=== PATIENT | female | born 1990 | race Caucasian/White ===

== ENCOUNTER 2016-08-12 21:54 | Day surgery (SDC) | payer MEDICAID ==
[~2016-08-12 21:54] MED LIST: BUSPIRONE HCL5 M1 PO; DIFLUCAN100 MG PO; IBUPROFEN800 M1 PO; IBUPROFEN800 MG PO; METRONIDAZOLE500 M2 PO; OXYCODONE/APAP PO; PRENATAL VITAM1 EAC5 PO; PRENATAL1 TAB PO; TYLENOL325 M2 PO
[2016-08-12 23:01] LABS: BASO % 0.6 % (0-2); BASO ABSOLUTE COUNT 0.1 tho/cmm (0.0-0.2); EOSINOPHIL ABSOLUTE COUNT 0.4 tho/cmm (0.0-0.7); HCT-HEMATOCRIT 41.3 % (34.0-49.0); HGB-HEMOGLOBIN 13.3 gm/dl (12.0-15.5); IMMATURE GRANULOCYTES ABSOLUTE 0.03 tho/cmm (0-0.03); IMMATURE GRANULOCYTES PERCENT 0.3 % (0-0.3); LYMPH % 36.9 % (20-45); MCHC MEAN CORPUSCULAR HGB CONC 32.2 % (32.0-36.0); MCV (MEAN CELL VOLUME) 83.9 fl (82.0-96.0); MEAN PLATELET VOLUME 8.4 cmc (9.4-12.4); MONO % 6.5 % (0-12); MONOCYTE ABSOLUTE COUNT 0.7 tho/cmm (0.0-1.2); NEUTROPHIL ABSOLUTE COUNT 5.5 tho/cmm (1.6-8.0); NEUTROPHIL-AUTOMATED 5.5 tho/cmm (1.6-8.0); NEUTROPHILS % 51.7 % (40-80); PLATELET COUNT 371 tho/cmm (150-450); RED BLOOD COUNT 4.92 mil/cmm (4.00-5.20); RED CELL DISTRIBUTION WIDTH 15.5 % (12.4-16.4); WHITE BLOOD COUNT 10.7 tho/cmm (4.0-10.0)
[2016-08-12 23:40] LABS: URINE BILIRUBIN NEGATIVE (NEG); URINE BLOOD LARGE (NEG); URINE GLUCOSE (UA) NEGATIVE (NEG); URINE KETONE NEGATIVE (NEG); URINE LEUKOCYTE ESTERASE NEGATIVE (NEG); URINE NITRITE NEGATIVE (NEG); URINE PROTEIN NEGATIVE (NEG); URINE SPECIFIC GRAVITY 1.015 (1.003-1.030)
[2016-08-12 23:41] LABS: URINE APPEARANCE CLEAR; URINE COLOR YELLOW
[2016-08-12 23:46] LABS: URINE EPITHELIAL CELLS 0-2 /[HPF] (0-10); URINE WBC 0-2 /[HPF] (0-5)
[2016-08-13] MEDS ORDERED: KEFLEX500 M4 PO (02:59)
[2016-08-13 09:31] LABS: HCT-HEMATOCRIT 38.5 % (34.0-49.0); HGB-HEMOGLOBIN 12.2 gm/dl (12.0-15.5); MCV (MEAN CELL VOLUME) 84.1 fl (82.0-96.0); RED CELL DISTRIBUTION WIDTH 15.3 % (12.4-16.4)
--- NOTE | 2016-08-13 17:13 | NUR ---
CONSULT: INSTRUCTED TO PUMP AND DUMP X1 AFTER ANESTHESIA. PUMP SET UP WITH 24MM FLANGES. REPORTS WELL WITH OCCASSIONAL CLOGGED DUCTS. INSTRUCTIONS GIVEN. QUESTIONS ON SPITTING UP, FOOD INTOLERANCE-ENCOURAGED BREAST MASSAGE PRIOR TO AND DURING FEEDINGS-IF NO IMPROVEMENT, REFER TO [employer]ER. QUESTIONS ON WINE AND -GAVE AAP GUIDELINES. INSTRUCTED TO PUMP EVERY 3 HOURS IF BABY IS NOT HERE TO BREASTFEED.
== END 2016-08-13 18:18 ==
LOC: EDMED 21:54 → EMR2 08-13 01:08 → PACU 08-13 01:50 → ORW 08-13 01:58 → OBGE 08-13 02:50 → ORW 08-13 12:06 → PACU 08-13 13:11 → OBGE 08-13 14:00
PROVIDERS: Emergency Medicine; Specialist
PROC: 10D17ZZ Extraction of Products of Conception, Retained, Via Natural or Artificial Opening (ICD-10-PCS; principal; 2016-08-13)
PROC: 0U997ZZ Drainage of Uterus, Via Natural or Artificial Opening (ICD-10-PCS; 2016-08-13)
DX: O72.2 Delayed and secondary postpartum hemorrhage (principal); N99.840 Postprocedural hematoma of a genitourinary system organ or structure following a genitourinary system procedure; Z90.49 Acquired absence of other specified parts of digestive tract; Z90.89 Acquired absence of other organs; Z98.890 Other specified postprocedural states
CPT/HCPCS: J0690; J2175; J2210; J2405; J2590; J3010